=== PATIENT | male | born 1995 | race Caucasian/White ===

== ENCOUNTER 2017-01-01 18:32 | Emergency (ER) | payer OTHER ==
[~2017-01-01] VITALS: Ht 193 cm; Wt 125.3 kg
[2017-01-01 18:45] VITALS: BP 137/86; PULSE 78; RESP 16; TEMP 98.1; O2SAT 99
--- NOTE | 2017-01-01 19:31 | PD ---
HPI Chief Complaint: Edema Time Seen by Provider: 19:12 Travel History International Travel<30 days: No Contact w/Intl Traveler<30days: Yes (Parent and sibling went to [facility]) Name of Country Traveled to: [facility] Traveled to known affect area: No History of Present Illness HPI The patient is a 21-year-old right-hand dominant male that noticed gradual onset of bilateral arm swelling beginning this morning. His right side is much more swollen than the left. There is no leg swelling. He is not have any major medical problems. He denies any fever, chest pain, shortness of breath, hemoptysis, lymph node swelling anywhere. He is not on any medications. He denies any trauma. He is not and has never been an IV drug abuser. [facility] Past Medical History Medical History: Denies Significant Hx Diminished Hearing: No Immunizations Current: Yes (Vitaliy reports having immunization for travel outside the [place] 2 yrs ago.) Tetanus Vaccination: Unknown Influenza Vaccination: No ?: Not Past Surgical History Surgical History: No Previous Surgery Social History Alcohol Use: No Tobacco Use: No Substance Use: No Allergies-Medications (Allergen,Severity, Reaction): Coded Allergies: Sulfa (Sulfonamide Antibiotics) (Verified Allergy, Unknown, 01/01/17) Reported Meds & Prescriptions Reported Meds & Active Scripts Active No Active Prescriptions or Reported Medications Review of Systems Except as stated in HPI: all other systems reviewed are Neg Physical Exam Narrative GENERAL: The patient is alert, oriented 3 in no apparent distress. His vital signs are normal. SKIN: Focused skin assessment warm/dry. No needle tracks are noted. HEAD: Atraumatic. Normocephalic. EYES: Pupils equal and round. No scleral icterus. No injection or drainage. ENT: No nasal bleeding or discharge. Mucous membranes pink and moist. NECK: Trachea midline. No JVD. CARDIOVASCULAR: Regular rate and rhythm. No murmur appreciated. RESPIRATORY: No accessory muscle use. Clear to auscultation. Breath sounds equal bilaterally. GASTROINTESTINAL: Abdomen soft, non-tender, nondistended. Hepatic and splenic margins not palpable. MUSCULOSKELETAL: No obvious deformities. No clubbing. No cyanosis. There is swelling on both arms, slight swelling around the left arm and more obvious swelling around the right arm. NEUROLOGICAL: Awake and alert. No obvious cranial nerve deficits. Motor grossly within normal limits. Normal speech. PSYCHIATRIC: Appropriate mood and affect; insight and judgment normal. Data Data Last Documented VS Vital Signs Date Time Temp Pulse Resp B/P (MAP) Pulse Ox O2 Delivery O2 Flow Rate FiO2 01/01/17 21:12 72 18 124/62 (82) 99 Room Air 01/01/17 18:45 98.1 Orders Orders Complete Blood Count With Diff (01/01/17 19:22) Comprehensive Metabolic Panel (01/01/17 19:22) Prothrombin Time / Inr (Pt) (01/01/17 19:22) Act Partial Throm Time (Ptt) (01/01/17 19:22) Urinalysis - C+S If Indicated (01/01/17 19:22) D-Dimer (01/01/17 19:22) Ct Thorax/ Chest W Iv Contrast (01/01/17 19:23) Iohexol 350 Inj (Omnipaque 350 Inj) (01/01/17 20:35) Aspirin (Aspirin) (01/01/17 22:30) Labs Laboratory Tests Test 01/01/17 19:43 White Blood Count 7.1 TH/MM3 Red Blood Count 5.49 MIL/MM3 Hemoglobin 16.8 GM/DL Hematocrit 49.0 % Mean Corpuscular Volume 89.4 FL Mean Corpuscular Hemoglobin 30.6 PG Mean Corpuscular Hemoglobin Concent 34.3 % Red Cell Distribution Width 12.5 % Platelet Count 172 TH/MM3 Mean Platelet Volume 7.1 FL Neutrophils (%) (Auto) 67.9 % Lymphocytes (%) (Auto) 23.9 % Monocytes (%) (Auto) 5.7 % Eosinophils (%) (Auto) 1.3 % Basophils (%) (Auto) 1.2 % Neutrophils # (Auto) 4.8 TH/MM3 Lymphocytes # (Auto) 1.7 TH/MM3 Monocytes # (Auto) 0.4 TH/MM3 Eosinophils # (Auto) 0.1 TH/MM3 Basophils # (Auto) 0.1 TH/MM3 CBC Comment DIFF FINAL Differential Comment Prothrombin Time 10.3 SEC Prothromb Time International Ratio 0.9 RATIO Activated Partial Thromboplast Time 24.7 SEC D-Dimer Quantitative (PE/DVT) 1.94 MG/L FEU Urine Color YELLOW Urine Turbidity CLEAR Urine pH 5.5 Urine Specific [place] 1.030 Urine Protein NEG mg/dL Urine Glucose (UA) NEG mg/dL Urine Ketones NEG mg/dL Urine Occult Blood TRACE Urine Nitrite NEG Urine Bilirubin NEG Urine Leukocyte Esterase NEG Urine RBC 0-3 /hpf Urine WBC 0-2 /hpf Urine Squamous Epithelial Cells 0-5 /hpf Microscopic Urinalysis Comment CULT NOT INDICATED Blood Urea Nitrogen 18 MG/DL Creatinine 1.00 MG/DL Random Glucose 92 MG/DL Total Protein 7.5 GM/DL Albumin 3.9 GM/DL Calcium Level 8.5 MG/DL Alkaline Phosphatase 40 U/L Aspartate Amino Transf (AST/SGOT) 190 U/L Alanine Aminotransferase (ALT/SGPT) 104 U/L Total Bilirubin 0.4 MG/DL Sodium Level 138 MEQ/L Potassium Level 4.0 MEQ/L Chloride Level 104 MEQ/L Carbon Dioxide Level 27.4 MEQ/L Anion Gap 7 MEQ/L Estimat Glomerular Filtration Rate 93 ML/MIN [facility] Medical Decision Making Medical Screen Exam Complete: Yes Emergency Medical Condition: Yes Medical Record Reviewed: Yes Interpretation(s) The complete metabolic profile shows a GOT of 190 and GPT of 104 but is otherwise normal. The CBC is normal. The urinalysis shows trace occult blood and specific gravity 1.030 but is otherwise normal. Differential Diagnosis Superior vena cava occlusion, deep vein thrombosis upper extremities, mediastinal mass Narrative Course The CT of the thorax with IV contrast is normal. I discussed the patient with Dr. Waldrop and there is no evidence of any venous obstruction on the upper extremities. There is no collateral flow present. The patient has bilateral upper arm swelling etiology undetermined. He is told return to emergency department should he get chest pain, hemoptysis, fever or shortness of breath. Diagnosis Primary Impression: Swelling of right upper extremity Additional Instructions: As we discussed, take an aspirin daily. If you get shortness of breath, chest pain, hemoptysis or fever, return to emergency department for reevaluation and possible admission. We cannot find any reason for your right arm swelling at this time. Med/Other Pt SpecificInfo: Existing Med Changed Scripts No Active Prescriptions or Reported Meds Disposition: 01 DISCHARGE HOME Condition: Stable Galdino Schmitz MD Jan 01, 2017 19:31
[2017-01-01 19:53] LABS: GLUCOSE,URINE NEG (NEG); KETONE, URINE NEG (NEG); NITRITE,URINE NEG (NEG); PH, URINE 5.5 (5.0-8.5)
[2017-01-01 19:55] LABS: AUTOMATED NEUTROPHIL # 4.8 TH/MM3 (1.8-7.7); BASOPHIL # 0.1 TH/MM3 (0-0.2); BASOPHIL % 1.2 % (0.0-2.0); EOSINOPHIL # 0.1 TH/MM3 (0-0.4); EOSINOPHIL % 1.3 % (0.0-4.0); HEMO FLAGS DIFF FINAL; LYMPH % 23.9 % (9.0-44.0); LYMPHOCYTE # 1.7 TH/MM3 (1.0-4.8); MEAN CELL VOLUME 89.4 FL (80.0-100.0); MEAN CORPUSCULAR HEMOGLOBIN 30.6 PG (27.0-34.0); MEAN CORPUSCULAR HGB CONC 34.3 % (32.0-36.0); MONO % 5.7 % (0.0-8.0); NEUT % 67.9 % (16.0-70.0); PLATELET COUNT 172 TH/MM3 (150-450); RED BLOOD COUNT 5.49 MIL/MM3 (4.50-5.90); RED CELL DISTRIBUTION WIDTH 12.5 % (11.6-17.2); WHITE BLOOD COUNT 7.1 TH/MM3 (4.0-11.0)
[2017-01-01 19:57] LABS: BLOOD, URINE TRACE (NEG)
[2017-01-01 19:58] LABS: RBC, URINE 0-3 /hpf (0-3); SQUAMOUS EPITHELIAL CELL URINE 0-5 /hpf (0-5); URINE COLOR YELLOW (YELLW/STRAW); WBC, URINE 0-2 /hpf (0-5)
[2017-01-01 19:59] LABS: COMMENT (UR) CULT NOT INDICATED; CULTURE IF INDICATED CULT NOT INDICATED
[2017-01-01 20:04] LABS: CHLORIDE 104 MEQ/L (98-107); SODIUM (NA) 138 MEQ/L (136-145)
[2017-01-01 20:07] LABS: ANION GAP 7 MEQ/L (5-15); BICARBONATE 27.4 MEQ/L (21.0-32.0)
[2017-01-01 20:08] LABS: BLOOD UREA NITROGEN 18 MG/DL (7-18)
[2017-01-01 20:10] LABS: ALT (GPT) 104 U/L (12-78); AST (GOT) 190 U/L (15-37)
[2017-01-01 20:11] LABS: APTT (PATIENT) 24.7 SEC (24.3-30.1); GLOMERULAR FILTRATION RATE 93 ML/MIN (>89); INTERNATIONAL NORMALIZED RATIO 0.9 RATIO; PROTHROMBIN TIME - PATIENT 10.3 SEC (9.8-11.6)
[2017-01-01 20:12] LABS: TOTAL BILIRUBIN ADULT 0.4 MG/DL (0.2-1.0)
[2017-01-01 20:13] LABS: ALKALINE PHOSPHATASE 40 U/L (45-117)
[2017-01-01] MEDS ORDERED: IOHEXOL 350 MG/ML 10 ML VIAL (for RAD DIAG) IVCONTRAST ONE (20:35)
[2017-01-01 21:12] VITALS: BP 124/62; PULSE 72; RESP 18; O2SAT 99
--- NOTE | 2017-01-01 21:37 | RADRPT ---
EXAM DATE/TIME: 01/01/2017 20:20 [place] COMPARISON: No previous studies available for comparison. INDICATIONS : Mass. Edema in right upper extremity. IV CONTRAST: 75 cc Omnipaque 350 (iohexol) IV ; injection was performed on the right side. RADIATION DOSE: 20.56 CTDIvol (mGy) MEDICAL HISTORY : None SURGICAL HISTORY : None. ENCOUNTER: Initial ACUITY: 1 day PAIN SCALE: 0/10 LOCATION: chest TECHNIQUE: Volumetric scanning of the chest was performed. Using automated exposure control and adjustment of t he mA and/or kV according to patient size, radiation dose was kept as low as reasonably achievable to obtain optimal diagnostic quality images. DICOM format image data is available electronically for review and comparison. Follow-up recommendations for detected pulmonary nodules are based at a minimum on nodule size and pa tient risk factors according to Fleischner Society Guidelines. FINDINGS: LUNGS: There is no consolidation or pneumothorax. No concerning pulmonary nodule is visualized. PLEURA: There is no pleural thickening or pleural effusion. MEDIASTINUM: The heart and great vessels demonstrate no acute abnormality. There is no mediastinal or hilar lymph adenopathy. AXILLAE: Within normal limits. No lymphadenopathy. SKELETAL: Within normal limits for patient age. MISCELLANEOUS: Supraclavicular region is unremarkable. The visualized upper abdominal organs demonstrate no acute a bnormality. CONCLUSION: Negative CT thorax with contrast. Steve Roy MD on January 01, 2017 at 21:34 Board Certified Radiologist. This report was verified electronically.
[2017-01-01] MEDS ORDERED: ASPIRIN 325 MG TAB PO ONE (22:30)
[2017-01-01 22:38] VITALS: BP 134/74; TEMP 98
== END 2017-01-01 22:41 | disposition home or self-care (01) ==
LOC: PHED 18:32
DX: M79.89 Other specified soft tissue disorders (principal)
CPT/HCPCS: 71260; 80053; 81001; 85025; 85379; 85610; 85730; 99284; Q9967